=== PATIENT | male | born 1940 | race Caucasian/White ===

== ENCOUNTER → 2017-04-25 | Outpatient (CLI) | payer MEDICARE, BC ==
--- NOTE | 2017-04-25 15:20 | 2DMMODE ---
[place] [address] 2 D/M-MODE ECHOCARDIOGRAM Name: ARTHURDANY Peña Room: [facility]#: [id number] Admission: 04/25/17 Attend Phys: Subhash De León MD Discharge: Date of : 44 Date of Service: 04/25/17 1520 Report #: [id number] THIS REPORT FOR: //name// APPROVED REPORT Study performed: 04/25/2017 10:12:12 EXAM: Comprehensive 2D, Doppler, and color-flow Echocardiogram Patient Location: Out-Patient BSA: 2.13 HR: 63 bpm BP: 120/80 mmHg Other Information Study Quality: Good Indications Cardiomyopathy Aortic Valve replacement, Mitral Valve repair 2D Dimensions LVEF(%): 40.47 (>50%) IVSd: 12.13 (7-11mm) LVOT Diam: 20.13 (18-24mm) LVDd: 54.78 mm PWd: 11.70 (7-11mm) Ascending Ao: 23.04 (22-36mm) LVDs: 43.84 (25-40mm) Aortic Root: 30.59 mm Richards's LVEF: 40.47 % Volumes Left Atrial Volume (Systole) LA ESV Index: 28.70 mL/m2 Aortic Valve AoV Peak Julius.: 1.71 m/s AO Peak Gr.: 11.63 mmHg LVOT Max P.48 mmHg AO Mean Gr.: 7.19 mmHg LVOT Mean P.34 mmHg LVOT Max V: 0.79 m/s AO V2 VTI: 35.53 cm LVOT Mean V: 0.53 m/s NUNO (VTI): 1.56 cm2 LVOT V1 VTI: 17.42 cm Mitral Valve MV Peak Gr.: 11.54 mmHg MV Mean Gr.: 4.89 mmHg E/A Ratio: 0.99 [place] [address] 2 D/M-MODE ECHOCARDIOGRAM Name: GIBSONEVERETT HALLMarichuy Peña Room: [facility]#: [id number] Admission: 04/25/17 Attend Phys: Subhash De León MD Discharge: Date of : 44 Date of Service: 04/25/17 1520 Report #: [id number] MV Decel. Time: 339.80 ms MV E Max Julius.: 1.24 m/s MV PHT: 98.54 ms MVA (PHT): 2.23 cm2 TDI E/Lateral E': 12.40 E/Medial E': 20.67 Medial E' Julius.: 0.06 m/s Lateral E' Julius.: 0.10 m/s Pulmonary Valve PV Peak Julius.: 1.00 m/s PV Peak Gr.: 3.97 mmHg Tricuspid Valve TR Peak Gr.: 19.87 mmHg RVSP: 24.87 mmHg Left Ventricle Left ventricle is mildly dilated. There is global hypokinesis of the left ventricle. There is normal left ventricular wall thickness. Left ventricular systolic function is moderate to severely decreased. LVEF is 30-35%. Transmitral Doppler flow pattern suggests restrictive physiology. Right Ventricle The right ventricle is normal size. The right ventricular systolic function is normal. Atria Left atrium is mildly dilated. Right atrium is mildly dilated. Aortic Valve Aortic Valve replacement Mild aortic regurgitation. There is no aortic valvular stenosis. Mitral Valve Mitral Valve repair Mild mitral regurgitation. No evidence of mitral valve stenosis. Tricuspid Valve The tricuspid valve is normal in structure. Mild tricuspid regurgitation. The RVSP is _25 mmHg. Pulmonic Valve The pulmonary valve is normal in structure. Mild to [place] [address] 2 D/M-MODE ECHOCARDIOGRAM Name: DANY GIBSON Room: [facility]#: [id number] Admission: 04/25/17 Attend Phys: Subhash De León MD Discharge: Date of : 44 Date of Service: 04/25/17 1520 Report #: [id number] Great Vessels The aortic root is normal in size. IVC is normal in size and collapses with >50% inspiration Pericardium There is no pericardial effusion. <Conclusion> Left ventricle is mildly dilated. There is normal left ventricular wall thickness. Left ventricular systolic function is moderate to severely decreased. LVEF is 30-35%. Transmitral Doppler flow pattern suggests restrictive physiology. There is global hypokinesis of the left ventricle. Left atrium is mildly dilated. Right atrium is mildly dilated. Mild aortic regurgitation. Aortic Valve replacement Mitral Valve repair Mild mitral regurgitation. Mild tricuspid regurgitation. The RVSP is _25 mmHg. <ELECTRONICALLY SIGNED> By: Gregorio Ferrari MD, FACC 04/25/17 1520 1520 1520 Gregorio Ferrari MD, FACC /INF
== END ==
LOC: M.CRD 09:54
DX: I08.3 Combined rheumatic disorders of mitral, aortic and tricuspid valves (principal); I42.9 Cardiomyopathy, unspecified; Z95.4 Presence of other heart-valve replacement; Z98.890 Other specified postprocedural states

== ENCOUNTER → 2020-10-05 | Day surgery (SDC) | payer MEDICARE, BC ==
[~2020-10-05] MED LIST: ASA81BEC PO; CARVEDILOL12.5 MG PO; FISH OIL 1,0001 EAC9 PO; GLUCOSAMINE HC500 M1 PO; IRBESARTAN75 MG PO; LIPITOR 20 MG T20 M1 PO; SUPER THERAVIT1 EACH PO; TURMERIC538 MG PO
--- NOTE | ~2020-10-05 | PROC ---
[address] [address] PROCEDURE REPORT Name: DANY GIBSON Room: [facility]#: [id number] Admission: 10/05/20 Attend Phys: Felice Johnson DO Discharge: Date of : 44 Report #: [id number] THIS REPORT FOR: cc: Emiliano Banks Mohammad K. DO DENNIS,Medical Records Staff ~ For GI report, please see the Provation report in [employer] content. By: [id number] Records Staff JAMIL /MARY
[2020-10-05 10:28] LABS: HEMATOCRIT 37.8 % (42.0-52.0); HEMOGLOBIN 13.3 gm/dL (14.0-18.0); MCH 33.2 pg (26.0-34.0); MCHC 35.1 g/dL (28.0-37.0); MCV 94.6 fL (80.0-100.0); RDW-CV 13.8 % (10.5-14.5); WBC 5.9 thou/uL (4.0-11.0)
[2020-10-05 10:39] LABS: CALCIUM 8.6 mg/dL (8.5-10.1)
[2020-10-05 10:44] LABS: ALBUMIN 3.5 g/dL (3.4-5.0); TOTAL BILIRUBIN 1.5 mg/dL (<0.1-1.0); TOTAL PROTEIN 7.2 g/dL (6.4-8.2)
== END | disposition home or self-care (01) ==
LOC: M.SUR 08:24
PROVIDERS: ATTEND Internal Medicine Gastroenterology
DX: Z12.11 Encounter for screening for malignant neoplasm of colon (principal); Z86.010 Personal history of colon polyps; K63.5 Polyp of colon; K57.30 Diverticulosis of large intestine without perforation or abscess without bleeding; K64.4 Residual hemorrhoidal skin tags; I10 Essential (primary) hypertension; Z98.890 Other specified postprocedural states; Z95.1 Presence of aortocoronary bypass graft; Z79.899 Other long term (current) drug therapy